=== PATIENT | female | born 1990 | race Caucasian/White ===

== ENCOUNTER 2024-07-16 21:55 | Emergency (ER) | payer BC ==
[2024-07-16] MEDS: predniSONE 20 MG Tab PO ONE (22:30)
[2024-07-16] MEDS: Take Home: predniSONE 20 MG, 2 Tab Pack PO ONE (22:30)
[2024-07-16] MEDS: Take Home: Doxycycline 100 MG Cap, 4 Cap Pack PO ONE (22:34)
== END 2024-07-16 22:40 | disposition home or self-care (01) ==
LOC: VM.ED 21:55
DX: S40.861A Insect bite (nonvenomous) of right upper arm, initial encounter (principal); W57.XXXA Bitten or stung by nonvenomous insect and other nonvenomous arthropods, initial encounter
CPT/HCPCS: 99282; A9270; J7512; 99283